=== PATIENT | male | born 1965 | race Caucasian/White ===

== ENCOUNTER 2020-12-09 13:17 | Emergency (ER) | payer OTHER ==
[~2020-12-09] VITALS: Ht 170.2 cm; Wt 89.8 kg
[~2020-12-09 13:17] MED LIST: ISOSORBIDE DINI20 M1 PO; NORCO 5-325 TA1 EACH PO; ZESTORETIC 20-1 EACH PO
[2020-12-09 14:02] LABS: BASOPHIL 0.3 % (0-2); EOSINOPHIL 1.3 % (0-5); HCT 38.8 % (42.0-52.0); HGB 12.6 g/dl (13.2-18.0); MCH 26.6 pg (25.0-31.0); MCHC 32.5 g/dL (32.0-36.0); MONOCYTE 7.7 % (0-12); MPV 12.2 fL (6.0-9.5); NEUTROPHIL 73.1 % (41-80); NRBC 0; PLT 269 K/uL (150-400); RBC 4.73 M/uL (4.70-6.00); RDW 13.8 % (11.5-14.0); WBC 11.5 K/uL (4.0-10.5)
[2020-12-09 14:11] LABS: ALBUMIN 3.2 g/dL (3.4-5.0); BILIRUBIN - TOTAL 0.2 mg/dL (0.2-1.0); BUN/CREAT RATIO (CALC) 11.3 RATIO; CREATININE 1.15 mg/dL (0.67-1.17); GLOBULIN (CALCULATION) 3.2 g/dL; POTASSIUM 3.5 mmol/L (3.5-5.1); TOTAL PROTEIN 6.4 g/dL (6.4-8.2)
[2020-12-09 15:28] LABS: BILIRUBIN NEGATIVE (NEGATIVE); BLOOD NEGATIVE Ery/uL (NEGATIVE); CLARITY CLEAR (CLEAR); COLOR YELLOW (YELLOW); GLUCOSE (U) NORMAL (NORMAL); LEUKOCYTES NEGATIVE Leu/uL (NEGATIVE); NITRITE NEGATIVE (NEGATIVE); PROTEIN NEGATIVE (NEGATIVE); SPECIFIC GRAVITY >=1.030 (1.001-1.030); UROBILINOGEN 0.2 mg/dL (0.2-1.0)
[2020-12-09 15:31] LABS: AMPHETAMINES NEGATIVE (NEGATIVE); BARBITURATES NEGATIVE (NEGATIVE); ECSTASY (MDMA) NEGATIVE (NEGATIVE); MARIJUANA (THC) POSITIVE (NEGATIVE); METHADONE NEGATIVE (NEGATIVE); OPIATES NEGATIVE (NEGATIVE); OXYCODONE NEGATIVE (NEGATIVE)
[2021-02-20] MEDS ORDERED: VICODIN 10/3251 EACH PO (11:06)
== END 2020-12-09 18:12 | disposition home or self-care (01) ==
LOC: FER 13:17
PROVIDERS: Nurse Practitioner Family
DX: R07.89 Other chest pain (principal); R00.1 Bradycardia, unspecified; I25.2 Old myocardial infarction; I10 Essential (primary) hypertension; E78.5 Hyperlipidemia, unspecified; F17.210 Nicotine dependence, cigarettes, uncomplicated
CPT/HCPCS: 36415; 71046; 80053; 80305; 81003; 84484; 85025; 93005; J2270

== ENCOUNTER → 2021-04-04 | Day surgery (SDC) | payer OTHER ==
[~2021-04-04] VITALS: Ht 170.2 cm; Wt 86.2 kg
[~2021-04-04] MED LIST changes: +ALTACE5 MG PO; +ASPIRIN EC81 M1 PO; +ATORVASTATIN CA80 MG PO; +BRILINTA90 MG PO; +ISOSORBIDE MONO60 MG PO; +PAXIL20 MG PO; +RANEXA500 MG PO; +TOPROL XL 25MG25 MG PO; +VICODIN 10/3251 EACH PO; +VITAMIN D350 MC4 PO
[2021-04-04 08:30] LABS: HCT 41.5 % (42.0-52.0); HGB 13.7 g/dl (13.2-18.0); MCV 78.9 fL (78.0-100.0); MPV 10.8 fL (6.0-9.5); RBC 5.26 M/uL (4.70-6.00); RDW 16.5 % (11.5-14.0); WBC 8.5 K/uL (4.0-10.5)
[2021-04-04 08:45] LABS: ALBUMIN 3.5 g/dL (3.4-5.0); BILIRUBIN - TOTAL 0.5 mg/dL (0.2-1.0); BUN/CREAT RATIO (CALC) 11.2 RATIO; CREATININE 1.07 mg/dL (0.67-1.17); GLOBULIN (CALCULATION) 3.8 g/dL; POTASSIUM 4.2 mmol/L (3.5-5.1); TOTAL PROTEIN 7.3 g/dL (6.4-8.2)
== END | disposition home or self-care (01) ==
LOC: FAS 07:59
PROVIDERS: Surgery
DX: Q82.5 Congenital non-neoplastic nevus (principal); H57.89 Other specified disorders of eye and adnexa; G89.29 Other chronic pain; R10.32 Left lower quadrant pain; I10 Essential (primary) hypertension; I25.2 Old myocardial infarction; E78.00 Pure hypercholesterolemia, unspecified; I25.10 Atherosclerotic heart disease of native coronary artery without angina pectoris; E78.5 Hyperlipidemia, unspecified; F41.9 Anxiety disorder, unspecified; F32.A Depression, unspecified; I73.9 Peripheral vascular disease, unspecified; Z79.82 Long term (current) use of aspirin; Z79.1 Long term (current) use of non-steroidal anti-inflammatories (NSAID); Z79.891 Long term (current) use of opiate analgesic; Z79.899 Other long term (current) drug therapy; Z95.818 Presence of other cardiac implants and grafts; Z85.51 Personal history of malignant neoplasm of bladder; Z87.891 Personal history of nicotine dependence
CPT/HCPCS: 36415; 80053; J1100; J1885; J2250; J2405; J2704; J3010; J7120

== ENCOUNTER → 2022-01-28 | Day surgery (SDC) | payer OTHER ==
[~2022-01-28] VITALS: Ht 170.2 cm; Wt 88.5 kg
[~2022-01-28] MED LIST changes: +FLOMAX 0.4 MG0.4 MG PO; +FOLIC ACID1 MG PO; +OMEPRAZOLE40 MG PO; +SEROQUEL PO
[2022-01-28 10:31] LABS: HCT 38.9 % (42.0-52.0); HGB 12.3 g/dl (13.2-18.0); MCH 24.6 pg (25.0-31.0); MCHC 31.6 g/dL (32.0-36.0); MPV 11.2 fL (6.0-9.5); RBC 4.99 M/uL (4.70-6.00); RDW 20.8 % (11.5-14.0); WBC 6.5 K/uL (4.0-10.5)
[2022-01-28 10:50] LABS: ALBUMIN 3.8 g/dL (3.4-5.0); BILIRUBIN - TOTAL 0.4 mg/dL (0.2-1.0); BUN/CREAT RATIO (CALC) 8.4 RATIO; CREATININE 1.07 mg/dL (0.67-1.17); GLOBULIN (CALCULATION) 3.4 g/dL; POTASSIUM 4.1 mmol/L (3.5-5.1); TOTAL PROTEIN 7.2 g/dL (6.4-8.2)
== END | disposition home or self-care (01) ==
LOC: FAS 08:52
PROVIDERS: Surgery
DX: D50.0 Iron deficiency anemia secondary to blood loss (chronic) (principal); D12.5 Benign neoplasm of sigmoid colon; K63.5 Polyp of colon; K31.9 Disease of stomach and duodenum, unspecified; K21.00 Gastro-esophageal reflux disease with esophagitis, without bleeding; I25.10 Atherosclerotic heart disease of native coronary artery without angina pectoris; E78.5 Hyperlipidemia, unspecified; I10 Essential (primary) hypertension; I25.2 Old myocardial infarction; I73.9 Peripheral vascular disease, unspecified; J44.9 Chronic obstructive pulmonary disease, unspecified; Z87.891 Personal history of nicotine dependence; Z79.82 Long term (current) use of aspirin; Z79.899 Other long term (current) drug therapy
CPT/HCPCS: 36415; 80053; J1610; J2250; J2704; J7120